=== PATIENT | female | born 1980 | race Caucasian/White ===

== ENCOUNTER 2016-08-18 08:08 | Emergency (ER) | payer OTHER ==
--- NOTE | ~2016-08-18 | CR78 ---
[facility] A Service of [facility] & [facility] RADIOLOGY TEXT RESULTS PATIENT: ALMA AGUIRRE LOCATION: CFTX : 78 UNIT #: [id number] AGE: [address]: THERESA MENDEZ SEX: F ORDER DR: [id number] [facility] [address] [place], [place] [address] [id number] E MR#: [id number] Acc #: [id number] NAME: ALMA AGUIRRE : 1980 SEX: F STUDY DATE/TIME: 08/18/2016 8:21 UNIT: [facility] ROOM: STUDY DESCRIPTION: CR Clavicle Comp Rt Attending Physician: Theresa Mendez Aprn Ordering Physician: Theresa Mendez Aprn Primary Care Physician: Greg Magana M.D. MEDICAL IMAGING REPORT This report is preliminary unless electronic signature is present EXAM Right clavicle series 08/18/2016 HISTORY Pain in right clavicle this a.m. No known injury. TECHNIQUE AP and lordotic views of the right clavicle are presented. FINDINGS No fracture. No traumatic malalignment. Acromioclavicular and glenohumeral joint relationships appear normal. The adjacent soft tissues are unremarkable. Visualized ribs and pulmonary parenchyma unremarkable. Dictated by... Arya Dent M.D. THIS IS AN ELECTRONICALLY VERIFIED REPORT Arya Dent M.D. at 08/19/2016 10:53 PM CHAZ/russ TD: 08/18/2016 11:37 JOB #: [id number] MEDICAL IMAGING REPORT Page 1 of 1 COPY
--- NOTE | ~2016-08-18 | EKG ---
PATIENT: ALMA AGUIRRE UNIT #: [id number] Ventricular Rate: 67 BPM Atrial Rate: 67 BPM P-R Interval: 104 ms QRS Duration: 68 ms Q-T Interval: 396 ms QTC Calculation(Bezet): 418 ms P [place]: -2 degrees Calculated R [place]: 15 degrees Calculated T [place]: 4 degrees Diagnosis Line: Sinus rhythm with short AR Diagnosis Line: Otherwise normal ECG Diagnosis Line: When compared with ECG of 14-MAY-2014 12:01, Diagnosis Line: No significant change was found Diagnosis Line: Confirmed by ALLISON REN MD ([id number]) on 08/18/2016 Diagnosis Line: 9:44:12 AM INTERPRETING MD: GELA COLLIER
[~2016-08-18 08:08] MED LIST: ADDERALL 10 MG10 M1 PO; ADDERALL PO; ADDERALL10 MG PO; AMOXICILLIN500 M1 PO; ARISTOCORT A 0.15 GM TOP; ATARAX PO; AURALGAN EAR DR14 ML OT; BACTRIM 400-801 TA1 PO; BACTRIM DS TABL1 TA1 PO; BACTROBAN22 GM TP; CIPRO250 MG PO; EC-NAPROSYN500 MG PO; ELIMITE60 GM TOP; IBUPROFEN600 MG; IBUPROFEN800 MG PO; KLONOPIN1 MG PO; NO MEDICATIONS; NORCO 5/325 TAB1 TAB PO; PYRIDIUM PO; TEGRETOL XR400 MG PO; ULTRAM PO; VOLTAREN75 MG PO; ZITHROMAX PO
== END 2016-08-18 09:14 | disposition home or self-care (01) ==
LOC: CFTX 08:08
DX: S46.811A Strain of other muscles, fascia and tendons at shoulder and upper arm level, right arm, initial encounter (principal); F17.210 Nicotine dependence, cigarettes, uncomplicated; Z90.49 Acquired absence of other specified parts of digestive tract; X58.XXXA Exposure to other specified factors, initial encounter; Y92.9 Unspecified place or not applicable
CPT/HCPCS: 73000; 93005; 99283

== ENCOUNTER 2016-10-18 10:10 | Emergency (ER) | payer OTHER ==
[2016-10-18] MEDS ORDERED: TOPAMAX (10:15)
[2016-10-18] MEDS ORDERED: ADDERALL (10:15)
[2016-10-18] MEDS ORDERED: KLONOPIN (10:16)
== END 2016-10-18 11:44 | disposition home or self-care (01) ==
LOC: SED 10:10
DX: S00.81XA Abrasion of other part of head, initial encounter (principal); X99.8XXA Assault by other sharp object, initial encounter
CPT/HCPCS: 90715; 99283

== ENCOUNTER 2016-11-25 16:20 | Emergency (ER) | payer OTHER ==
[~2016-11-25] VITALS: Ht 172.7 cm; Wt 86.2 kg
[~2016-11-25 16:20] MED LIST changes: +ADDERALL; +KLONOPIN; +TOPAMAX
[2016-11-25 17:13] LABS: URINE SOURCE CLEAN CATCH
[2016-11-25 17:16] LABS: BASOPHIL# 0.1 X10e3 (0-0.3); BASOPHIL% 0.8 % (0-2.5); DIFF IND NO; EOSINOPHIL% 0.2 % (0.0-7.0); HEMATOCRIT 42.3 % (35.0-45.0); HEMOGLOBIN 14.5 gm/dL (12.0-16.0); LYMPHOCYTE# 1.2 X10e3 (1.0-3.5); LYMPHOCYTE% 12.2 % (17.0-45.0); MEAN CELL VOLUME 95.9 FL (83-96); MEAN CORPUSCULAR HEMOGLOBIN 32.8 PG (28-34); MEAN CORPUSCULAR HGB CONC 34.2 g/dL (30-36); MEAN PLATELET VOLUME 7.7 FL (6.5-11.5); MICRO INDICATED? YES; MONOCYTE# 0.4 X10e3 (0-1.0); NEUTROPHIL# 8.3 X10e3 (1.5-7.1); NEUTROPHIL% 82.8 % (40-75); PLATELET COUNT 244 X10e3 (140-420); RED BLOOD COUNT 4.41 X10e (3.90-5.30); RED CELL DISTRIBUTION WIDTH 13.8 % (11.0-15.5); URINE APPEARANCE CLEAR; URINE BILIRUBIN NEG (NEG); URINE BLOOD 3+ (NEG); URINE COLOR YELLOW; URINE GLUCOSE NEG (NORM); URINE KETONE NEG (NEG); URINE LEUKOCYTE ESTERASE NEG (NEG); URINE NITRATE NEG (NEG); URINE PROTEIN NEG (NEG); URINE SPECIFIC GRAVITY >=1.030 (1.003-1.035); URINE UROBILINOGEN 0.2 MG/DL (NORM)
[2016-11-25 17:19] LABS: CULTURE INDICATED? NO; URINE BACTERIA NEG (NEG); URINE MUCUS PRESENT; URINE RBC 0-2 /[HPF] (0-2); URINE SQUAMOUS EPITHELIAL CELL FEW /[HPF]; URINE WBC 0-2 /[HPF] (0-5)
[2016-11-25 17:35] LABS: ALBUMIN SERUM 4.7 g/dL (3.5-5.0); ALKALINE PHOSPHATASE 45 U/L (32-92); ALT (SGPT) 29 U/L (10-40); AMYLASE 30 U/L (0-46); AST (SGOT) 21 U/L (10-42); BILIRUBIN,TOTAL 0.4 mg/dL (0.2-2.0); BLOOD UREA NITROGEN 21 mg/dL (9-23); BUN/CREATININE RATIO 26.25; CALCIUM SERUM 9.3 mg/dL (8.4-10.2); CARBON DIOXIDE 18 mmol/L (22-31); CHLORIDE 112 mmol/L (100-111); CREATININE SERUM 0.8 mg/dL (0.6-1.4); GLOM FILT RATE Estimated 94.3 mL/min (>60); GLUCOSE FASTING 88 mg/dL (70-110); LIPASE 32 U/L (22-51); POTASSIUM 3.5 mmol/L (3.5-5.1); PROTEIN TOTAL SERUM 8.2 g/dL (6.0-8.3); SODIUM 139 mmol/L (135-145)
[2016-11-25 17:36] LABS: BILIRUBIN, DIRECT <0.1 mg/dL (0.0-0.2); BILIRUBIN,INDIRECT 0.3 mg/dL (0.0-0.9)
== END 2016-11-25 18:23 | disposition home or self-care (01) ==
LOC: SED 16:20
PROVIDERS: Nurse Practitioner Family
DX: R31.9 Hematuria, unspecified (principal); R10.9 Unspecified abdominal pain; F39 Unspecified mood [affective] disorder; F90.9 Attention-deficit hyperactivity disorder, unspecified type; F60.3 Borderline personality disorder; Z90.49 Acquired absence of other specified parts of digestive tract; Z98.51 Tubal ligation status; Z88.5 Allergy status to narcotic agent
CPT/HCPCS: 36415; 80048; 80076; 81003; 82150; 83690; 84703; 85025; 99284